=== PATIENT | female | born 1995 | race Two or more races ===

== ENCOUNTER 2021-12-06 00:44 | Emergency (ER) | payer MEDICAID ==
[~2021-12-06] VITALS: Ht 157.5 cm; Wt 84.8 kg
[2021-12-06 00:45] VITALS: BP 133/74
[2021-12-06] MEDS ORDERED: POLYSOL15 OP (09:59)
[2021-12-06] MEDS ORDERED: OSEL75CA5 PO (09:59)
[2021-12-06] MEDS ORDERED: PRED20TA2 PO (09:59)
[2021-12-06] MEDS ORDERED: ACET-1158 PO (09:59)
== END 2021-12-06 03:02 | disposition left against medical advice (07) ==
LOC: ER 00:44
DX: J02.9 Acute pharyngitis, unspecified (principal); R05.9 Cough, unspecified; Z53.21 Procedure and treatment not carried out due to patient leaving prior to being seen by health care provider; Z20.822 Contact with and (suspected) exposure to COVID-19
CPT/HCPCS: 36415; 87804

== ENCOUNTER 2021-12-06 04:54 | Emergency (ER) | payer MEDICAID ==
[~2021-12-06] VITALS: Ht 157.5 cm; Wt 84.8 kg
[2021-12-06 09:55] VITALS: BP 121/73
[2021-12-06] MEDS ORDERED: PRED20TA2 PO (09:59)
[2021-12-06] MEDS ORDERED: OSEL75CA5 PO (09:59)
[2021-12-06] MEDS ORDERED: POLYSOL15 OP (09:59)
[2021-12-06] MEDS ORDERED: ACET-1158 PO (09:59)
== END 2021-12-06 10:38 | disposition home or self-care (01) ==
LOC: ER 04:54
DX: J10.1 Influenza due to other identified influenza virus with other respiratory manifestations (principal); H10.33 Unspecified acute conjunctivitis, bilateral

== ENCOUNTER 2022-03-19 19:59 | Emergency (ER) | payer MEDICAID ==
[~2022-03-19] VITALS: Ht 157.5 cm; Wt 81.7 kg
[~2022-03-19 19:59] MED LIST: ACET-1158 PO; OSEL75CA5 PO; POLYSOL15 OP; PRED20TA2 PO
[2022-03-19 21:46] VITALS: BP 142/85
== END 2022-03-20 00:25 | disposition home or self-care (01) ==
LOC: ER 20:02
DX: S93.402A Sprain of unspecified ligament of left ankle, initial encounter (principal); Z79.899 Other long term (current) drug therapy; X50.1XXA Overexertion from prolonged static or awkward postures, initial encounter; Y93.89 Activity, other specified; Y92.89 Other specified places as the place of occurrence of the external cause; Y99.8 Other external cause status
CPT/HCPCS: 73610